=== PATIENT | male | born 1980 | race Caucasian/White ===

== ENCOUNTER 2019-09-09 09:11 | Emergency (ER) | payer OTHER ==
[2019-09-10 12:10] LABS: SARS-CoV-2 MS2 Positive; SARS-CoV-2 N Gene Positive; SARS-CoV-2 S Gene Positive; SARS-CoV-2 orf1ab Positive
== END 2019-09-09 09:57 | disposition home or self-care (01) ==
LOC: ERS 09:11
DX: U07.1 COVID-19 (principal); J02.9 Acute pharyngitis, unspecified; R09.81 Nasal congestion
CPT/HCPCS: 87635; 99283; U0003